=== PATIENT | male | born 1965 | race Two or more races ===

== ENCOUNTER 2017-09-13 18:05 | Emergency (ER) | payer MEDICAID, OTHER ==
[~2017-09-13] VITALS: Ht 165.1 cm; Wt 77.1 kg
[~2017-09-13 18:05] MED LIST: ALBUTEROL SULF8.5 GM INH; AMOXICILLIN500 MG ORAL; AZITHROMYCIN250 MG ORAL; CHERATUSSIN AC118 ML PO; HYDROCODON-ACE1 EA15 ORAL; IBUPROFEN600 MG ORAL; IBUPROFEN800 MG ORAL; NKM; PENICILLIN V P500 MG PO
[2017-09-13 18:16] VITALS: BP 120/75
--- NOTE | 2017-09-13 18:29 | Emergency Room Report ---
History of Present Illness General Chief Complaint: Multiple Trauma/Fall Source: Patient Present Illness HPI Patient fell getting out of his truck and caught his little finger of his left hand. He has deformity and pain. Also he complains about numbness on one side of the finger. There is no bleeding. His tetanus is up-to-date. The pain is reported / and radiates to the base of the palm. No other injuries sustained. No medical problems. Allergies: Coded Allergies: No Known Allergies (Unverified , 08/18/13) Patient History Past Medical History: see triage record Social History: Reports: smoking Social History Narrative with Reviewed Nursing Documentation: PMH: Agreed; PSxH: Agreed Nursing Documentation-PMH Past Medical History: No History, Except For Review of Systems Constitutional: Denies: fever Musculoskeletal: Reports: see HPI Skin: Reports: see HPI Neurological: Reports: see HPI Hematologic/Lymphatic: Reports: see HPI Physical Exam Vital Signs Date Time Temp Pulse Resp B/P (MAP) Pulse Ox O2 Delivery O2 Flow Rate FiO2 09/13/17 18:08 98.5 105 16 120/75 94 Room Air 98.4 Sp02 EP Interpretation: reviewed, normal General Appearance: well appearing, alert, GCS 15 Head: normocephalic, atraumatic Eyes: bilateral eye normal inspection, bilateral eye PERRL ENT: hearing grossly normal, normal voice, moist mucus membranes Neck: full range of motion, supple Respiratory: no respiratory distress, speaking full sentences Gastrointestinal: normal inspection Musculoskeletal: other - deformity of L little finger - decreased ROM - palm and wrist without tenderness to palpation Neurologic: alert, normal gait, speech normal, sensory deficit - radial side of little finger Psychiatric: mood/affect normal Skin: abrasions - medial little finger Procedures Joint Reduction Joint Reduction : Consent: Verbal Joint Reduction Site: other - Left little finger Procedural Sedation: No Reduction Attempts: One Pre-Procedure NV Exam: Yes - Radial nerve bundle deficit Post-Procedure NV Exam: Yes - Digital block Post Joint Reduction Film: joint reduced - fracture on post reduction x-rays Patient Tolerated: Well Complications: None Medical Decision Making Diagnostic Impression: Primary Impression: Dislocation of left little finger Qualified Codes: S63.257A - Unspecified dislocation of left little finger, initial encounter Additional Impressions: Nerve injury Fracture of phalanx of left little finger Qualified Codes: S62.657A - Nondisplaced fracture of medial phalanx of left little finger, initial encounter for closed fracture ER Course Patient presents with little finger deformity after trauma. Differential includes fracture, dislocation and sprain or any combination of the 3. He has nerve deficit at the moment. There is pain and a digital block will be performed and we will take x-rays. Depending on these. He may need reduction of the finger. Little finger dislocation. Reduced. Tolerated well. Post reduction x-rays with fracture. Most likely present from dislocation. Reduction ease would not have cause the fracture. Splint applied by tech, position excellent and vasc intact. Unable to assess neuro as digital block. Sling also given. Patient stable for outpatient observation and treatment. Other X-Ray Diagnostic Results Other X-Ray Diagnostic Results #1: X-Ray ordered: L hand # of Views/Limited Vs Complete: 3 View Indication: Pain Interpretation: no fractures - seen, other - dislocation and STS Impression: Other Electronically Signed by: Ned Baker MD Other X-Ray Diagnostic Results #2: X-Ray ordered: L hand # of Views/Limited Vs Complete: 2 View Indication: Other - post reduction Interpretation: no dislocation, other - fx and STS Impression: Other Electronically Signed by: Ned Baker MD Last Vital Signs Date Time Temp Pulse Resp B/P (MAP) Pulse Ox O2 Delivery O2 Flow Rate FiO2 09/13/17 19:05 98.4 16 120/75 94 Room Air 98.4 09/13/17 18:08 105 Status: improved Disposition: HOME, SELF-CARE Condition: Improved Scripts Ibuprofen* (MOTRIN*) 600 Mg Tablet 600 MG ORAL Q6H PRN for For Pain, #20 TAB Prov: Ned Baker M.D. 09/13/17 Tramadol Hcl* (ULTRAM*) 50 Mg Tablet 50 MG ORAL Q6H PRN for For Pain, #16 TAB 0 Refills Prov: Ned Baker M.D. 09/13/17 Ned Baker M.D. Sep 13, 2017 18:29
[2017-09-13] MEDS ORDERED: Lidocaine 1% Plain 30 ml INJ ONE (18:30)
[2017-09-13] MEDS ORDERED: Bacitracin Oint UD TOPIC ONE ×2 (18:38→18:45)
[2017-09-13] MEDS ORDERED: IBUPROFEN600 MG ORAL (18:58)
[2017-09-13] MEDS ORDERED: TRAMADOL HCL50 MG ORAL (18:58)
[2017-09-13 19:05] VITALS: BP 120/75
--- NOTE | 2017-09-14 11:25 | Diagnostic Imaging Report ---
Indication: Post reduction. Left hand pain Findings: 2 views of the left hand were obtained post reduction. Alignment is normal. There is a tiny fracture involving the lateral aspect of the fifth proximal phalanx. Not certain of this fracture was present before the reduction or after. Difficult to tell based on the prereduction films. A fracture is adjacent to the PIP joint which was dislocated. Impression: Apparent tiny fracture on post reduction film. Alignment normal
--- NOTE | 2017-09-14 11:26 | Diagnostic Imaging Report ---
Indication: pain. Left hand pain Findings: 3 views of the left hand were obtained. There is lateral dislocation of the PIP joint. Tiny fracture may be present at the base of the middle phalange. IMPRESSION: Dislocation of the fifth proximal phalange
== END 2017-09-13 19:30 | disposition home or self-care (01) ==
LOC: EMR 19:06
DX: S63.287A Dislocation of proximal interphalangeal joint of left little finger, initial encounter (principal); S62.657A Nondisplaced fracture of middle phalanx of left little finger, initial encounter for closed fracture; S60.417A Abrasion of left little finger, initial encounter; W17.89XA Other fall from one level to another, initial encounter; Y92.812 Truck as the place of occurrence of the external cause
CPT/HCPCS: 26770; 73120; 73130; 99284; J2001; Z7502

== ENCOUNTER 2018-10-17 11:31 | Emergency (ER) | payer OTHER ==
[~2018-10-17] VITALS: Ht 167.6 cm; Wt 95.3 kg
[~2018-10-17 11:31] MED LIST changes: +TRAMADOL HCL50 MG ORAL
[2018-10-17 12:01] VITALS: BP 153/94
--- NOTE | 2018-10-17 12:04 | NUR ---
ED Nurse Note: Pt came in from home due to intermittent dizziness x 1 month, medial lower abdominal pain, cramping like x 2 months, 08/19 eileen. Pt also reports constipation x 1 week. Last bowel movement was today. AOx4, VSS eileen. Will cont to monitor.
--- NOTE | 2018-10-17 12:26 | Emergency Room Report ---
History of Present Illness General Chief Complaint: Dizziness Source: Patient, Medical Record Present Illness HPI The patient was referred by his private physician from a clinic for suprapubic pain. He has prostatic problems. His doctors states that he should not be experiencing pain with this. He states the pain is suprapubic. He rates it 4-5 /10 at this time. Is nonradiating. He denies having hernia. There is no hematuria or dysuria. 3 days ago he started taking Flomax. He rated the pain 6 /10 to the triage nurse. Is worse with palpation. Second problem is the patient's had intermittent dizziness. He takes Claritin. He feels the world spinning. Usually spins in one direction. This is not positional. He denies vomiting with this problem. Also does not have nausea. The dizziness seems to gotten worse after taking the Flomax. He states that when he got dizzy today his vision got blurry. Was slightly different in the past few days since taking Flomax. He had to hold onto something to prevent himself from falling or passing out. He has some inflammation of the right eye that is been chronic. No fevers, chills, sore throat, chest pain, palpitations, nausea, vomiting, diarrhea, dysuria, abdominal pain, shortness of breath, joint pain, rashes, depression, anxiety, headache. Allergies: Coded Allergies: No Known Allergies (Unverified , 08/18/13) Patient History Past Medical History: see triage record Social History: Denies: smoking - Former Social History Narrative Reviewed Nursing Documentation: PMH: Agreed; PSxH: Agreed Nursing Documentation-PMH Past Medical History: No History, Except For Hx Cardiac Problems: No - BPH Hx Hypertension: No Hx Pacemaker: No Hx Asthma: No Hx COPD: No Hx Diabetes: No Hx Cancer: No Hx Dialysis: Yes History Of Psychiatric Problem: No Hx Neurological Problems: No Hx Cerebrovascular Accident: No Hx Seizures: No Review of Systems All Other Systems: negative except mentioned in HPI Physical Exam Vital Signs Date Time Temp Pulse Resp B/P (MAP) Pulse Ox O2 Delivery O2 Flow Rate FiO2 10/17/18 11:40 98.2 74 16 104/69 (81) 95 Room Air Sp02 EP Interpretation: reviewed, normal General Appearance: well appearing, no apparent distress, GCS 15 Head: normocephalic Eyes: right eye other - Mild stye right lower medial eyelid; bilateral eye PERRL, bilateral eye EOMI - No nystagmus ENT: normal pharynx, TMs + canals normal, moist mucus membranes Neck: supple Respiratory: lungs clear, normal breath sounds Cardiovascular #1: regular rate, rhythm Cardiovascular #2: 2+ radial (R) Gastrointestinal: normal inspection, normal bowel sounds, soft, no mass, non- distended, no hernia Genitourinary: other - Pubic tenderness Musculoskeletal: back normal, gait/station normal, normal range of motion Neurologic: alert, oriented x3, machine feeder raw stock III-XII nml as tested, motor strength/tone normal, DTRs symmetric, sensory intact, cerebellar normal, normal gait, speech normal Psychiatric: mood/affect normal Skin: no rash Medical Decision Making Diagnostic Impression: Primary Impression: Dizziness Additional Impressions: Adverse reaction to Flomax Pubic bone pain ER Course Patient presents with dizziness. In addition he has pubic tenderness. Differential includes adverse reaction to Flomax, orthostatic hypotension, volume depletion, renal failure, acute myocardial infarction, vertigo, near syncope amongst others. Evaluation with EKG, labs. Treatment with IV hydration , Benadryl and Toradol. In the past he has had vertiginous symptoms. The lack of nausea, change in vision with the addition of Flomax suggest possible hypotension. EKG without injury. Chest x-ray normal. Labs with minimal elevated and blood glucose but otherwise unremarkable. Improved with treatment. Pain is resolved. Discussed results and need for follow up. Patient given copies of labs and EKG to take to his private doctors. He was advised to stop taking Flomax at this time. Patient stable for outpatient observation and treatment. Laboratory Tests Test 10/17/18 12:00 10/17/18 12:40 Urine Color Yellow Urine Appearance Clear Urine pH 6.5 (4.5-8.0) Urine Specific [place] 1.015 (1.005-1.035) Urine Protein 1+ (NEGATIVE) H Urine Glucose (UA) Negative (NEGATIVE) Urine Ketones Negative (NEGATIVE) Urine Blood 3+ (NEGATIVE) H Urine Nitrite Negative (NEGATIVE) Urine Bilirubin Negative (NEGATIVE) Urine Urobilinogen 1 MG/DL (0.0-1.0) H Urine Leukocyte Esterase Negative (NEGATIVE) Urine RBC 15-20 /HPF (0 - 0) H Urine WBC 0-2 /HPF (0 - 0) Urine Squamous Epithelial Cells Occasional /LPF Urine Bacteria Occasional /HPF (NONE) Urine Mucus Moderate /LPF (NONE/OCC) H White Blood Count 9.5 K/UL (4.8-10.8) Red Blood Count 5.12 M/UL (4.70-6.10) Hemoglobin 16.2 G/DL (14.2-18.0) Hematocrit 47.2 % (42.0-52.0) Mean Corpuscular Volume 92 FL (80-99) Mean Corpuscular Hemoglobin 31.6 PG (27.0-31.0) H Mean Corpuscular Hemoglobin Concent 34.2 G/DL (32.0-36.0) Red Cell Distribution Width 11.3 % (11.6-14.8) L Platelet Count 164 K/UL (150-450) Mean Platelet Volume 8.2 FL (6.5-10.1) Neutrophils (%) (Auto) 64.6 % (45.0-75.0) Lymphocytes (%) (Auto) 27.7 % (20.0-45.0) Monocytes (%) (Auto) 5.1 % (1.0-10.0) Eosinophils (%) (Auto) 2.0 % (0.0-3.0) Basophils (%) (Auto) 0.6 % (0.0-2.0) Prothrombin Time 10.2 SEC (9.30-11.50) Prothrombin Time INR 1.0 (0.9-1.1) PTT 29 SEC (23-33) Sodium Level 138 MMOL/L (136-145) Potassium Level 3.9 MMOL/L (3.5-5.1) Chloride Level 105 MMOL/L (98-107) Carbon Dioxide Level 27 MMOL/L (21-32) Anion Gap 6 mmol/L (5-15) Blood Urea Nitrogen 18 mg/dL (7-18) Creatinine 0.8 MG/DL (0.55-1.30) Estimate Glomerular Filtration Rate > 60 mL/min (>60) Glucose Level 144 MG/DL (74-106) H Calcium Level 9.0 MG/DL (8.5-10.1) Total Bilirubin 0.6 MG/DL (0.2-1.0) Aspartate Amino Transferase (AST) 21 U/L (15-37) Alanine Aminotransferase (ALT) 22 U/L (12-78) Alkaline Phosphatase 72 U/L (46-116) Total Creatine Kinase 246 U/L (26-308) Troponin I 0.000 ng/mL (0.000-0.056) Pro-B-Type Natriuretic Peptide 58 pg/mL (0-125) Total Protein 7.0 G/DL (6.4-8.2) Albumin 3.7 G/DL (3.4-5.0) Globulin 3.3 g/dL Albumin/Globulin Ratio 1.1 (1.0-2.7) EKG Diagnostic Results Rate: normal Rhythm: NSR ST Segments: no acute changes Rhythm Strip Diag. Results EP Interpretation: yes Rhythm: NSR, no PVC's, no ectopy Chest X-Ray Diagnostic Results Chest X-Ray Diagnostic Results : Chest X-Ray Ordered: Yes # of Views/Limited/Complete: 1 View Indication: Other EP Interpretation: Yes Interpretation: no consolidation, no effusion, no pneumothorax Impression: No acute disease Electronically Signed by: Electronically signed by Ned Baker MD Last Vital Signs Date Time Temp Pulse Resp B/P (MAP) Pulse Ox O2 Delivery O2 Flow Rate FiO2 10/17/18 14:59 98.2 74 19 118/69 100 Room Air Status: improved Disposition: HOME, SELF-CARE Condition: Improved Scripts Meclizine Hcl* (MECLIZINE*) 12.5 Mg Tablet 12.5 MG ORAL THREE TIMES A DAY PRN for vertigo, #10 TAB BEWARE: This might worsen your prostate problems. Prov: Ned Baker MD 10/17/18 Tramadol Hcl* (ULTRAM*) 50 Mg Tablet 50 MG ORAL Q6H PRN for For Pain, #6 TAB 0 Refills Prov: Ned Baker MD 10/17/18 Ned Baker MD Oct 17, 2018 12:26
[2018-10-17] MEDS ORDERED: DiphenhydrAMINE 50mg/ml Inj IVP ONE (12:30)
[2018-10-17] MEDS ORDERED: Ketorolac 30mg Inj IV ONE (12:30)
[2018-10-17 12:47] LABS: APPEARANCE,URINE CLEAR; BILIRUBIN, URINE NEGATIVE (NEGATIVE); GLUCOSE, URINE (UA) NEGATIVE (NEGATIVE); KETONES,URINE NEGATIVE (NEGATIVE); LEUKOCYTE ESTERASE ,URINE NEGATIVE (NEGATIVE); NITRITE,URINE NEGATIVE (NEGATIVE); PH,URINE 6.5 (4.5-8.0); PROTEIN,URINE 1+ (NEGATIVE); UROBILINOGEN,URINE 1 MG/DL (0.0-1.0)
[2018-10-17 12:49] VITALS: BP_SYST 128; BP_SYST 137; BP_SYST 139; BP_DIAS 79; BP_DIAS 81; BP_DIAS 82
[2018-10-17 12:49] LABS: COLOR,URINE YELLOW
[2018-10-17 12:53] LABS: BASOPHILS % (AUTO) 0.6 % (0.0-2.0); HEMATOCRIT 47.2 % (42.0-52.0); HEMOGLOBIN 16.2 G/DL (14.2-18.0); LYMPHOCYTES % (AUTO) 27.7 % (20.0-45.0); MEAN CORPUSCULAR VOLUME 92 FL (80-99); MONOCYTES % (AUTO) 5.1 % (1.0-10.0); NEUTROPHILS % (AUTO) 64.6 % (45.0-75.0); PLATELET COUNT 164 K/UL (150-450); RED BLOOD COUNT 5.12 M/UL (4.70-6.10); RED CELL DISTRIBUTION WIDTH 11.3 % (11.6-14.8); WHITE BLOOD COUNT 9.5 K/UL (4.8-10.8)
[2018-10-17 13:09] LABS: ANION GAP 6 mmol/L (5-15); BLOOD UREA NITROGEN 18 mg/dL (7-18); CARBON DIOXIDE 27 MMOL/L (21-32); CHLORIDE 105 MMOL/L (98-107); CREATININE 0.8 MG/DL (0.55-1.30); POTASSIUM 3.9 MMOL/L (3.5-5.1); SODIUM 138 MMOL/L (136-145)
[2018-10-17 13:20] LABS: ALANINE AMINOTRANSFERASE 22 U/L (12-78); ALBUMIN 3.7 G/DL (3.4-5.0); ALBUMIN/GLOBULIN RATIO 1.1 (1.0-2.7); ALKALINE PHOSPHATASE 72 U/L (46-116); ASPARTATE AMINO TRANSFERASE 21 U/L (15-37); BILIRUBIN,TOTAL 0.6 MG/DL (0.2-1.0); CREATINE KINASE 246 U/L (26-308)
--- NOTE | 2018-10-17 14:01 | NUR ---
ED Nurse Note: at bedside.
[2018-10-17 14:13] VITALS: BP 122/76
--- NOTE | 2018-10-17 14:21 | NUR ---
ED Nurse Note: Juice given to pt, ERMD confirmed that it is ok.
[2018-10-17] MEDS ORDERED: MECLIZINE HCL12.5 MG ORAL (14:51)
[2018-10-17] MEDS ORDERED: TRAMADOL HCL50 MG ORAL (14:51)
[2018-10-17 14:59] VITALS: BP_SYST 118; BP_SYST 122; BP_DIAS 69; BP_DIAS 76
--- NOTE | 2018-10-17 14:59 | NUR ---
ER DISCHARGE NOTE: Patient is cleared to be discharged per ERMD, pt is aox4, on room air, with stable vital signs. pt was given dc and prescription instructions, pt was able to verbalize understanding, pt id band and iv site removed without complications. pt is able to ambulate with steady gait. pt took all belongings.
== END 2018-10-17 14:59 | disposition home or self-care (01) ==
LOC: EMR 12:20
DX: R42 Dizziness and giddiness (principal); T44.6X5A Adverse effect of alpha-adrenoreceptor antagonists, initial encounter; Y92.9 Unspecified place or not applicable; M89.8X8 Other specified disorders of bone, other site
CPT/HCPCS: 36415; 80053; 81003; 82550; 83880; 84484; 85025; 85610; 85730; 93005; 96361; 96374; 96375; 99284; J1200; J1885